=== PATIENT | female | born 1995 | race Hispanic/Latino ===

== ENCOUNTER 2020-08-27 16:37 | Emergency (ER) | payer BC, OTHER ==
[~2020-08-27 16:37] MED LIST: LEVO150 PO
[2020-08-27 17:27] LABS: BASOPHILS % (AUTO) 0.1 % (0.0-5.0); EOSINOPHILS % (AUTO) 0.2 % (0.0-8.0); HEMATOCRIT 29.9 % (36-48); LYMPHOCYTES % (AUTO) 20.9 % (21.0-51.0); MEAN CORPUSCULAR HEMOGLOBIN 18.1 pg (27.0-33.0); MEAN CORPUSCULAR HGB CONC 27.8 g/dL (32.0-36.0); MEAN CORPUSCULAR VOLUME 65.1 fL (79-99); MONOCYTES % (AUTO) 8.5 % (3.0-13.0); PLATELET COUNT (AUTO) 217 K/uL (130-400); RED BLOOD CELL COUNT(AUTO) 4.59 MIL/uL (4.00-5.50); RED CELL DISTRIBUTION WIDTH 20.1 % (11.0-15.5); WHITE BLOOD COUNT (AUTO) 9.3 K/uL (4.8-10.8)
[2020-08-27 17:38] LABS: CREATININE 0.8 mg/dL (0.5-1.5); POTASSIUM 3.4 mmol/L (3.5-5.1)
[2020-08-27 17:43] LABS: BILIRUBIN,TOTAL 1.1 mg/dL (0.2-1.0); TOTAL PROTEIN, SERUM 8.3 g/dL (6.0-8.3)
== END 2020-08-27 20:36 | disposition left against medical advice (07) ==
LOC: EDH 16:37
DX: O20.0 Threatened abortion (principal); E07.9 Disorder of thyroid, unspecified; Z3A.01 Less than 8 weeks gestation of pregnancy
CPT/HCPCS: 36415; 76817; 80053; 85025

== ENCOUNTER 2020-12-25 10:08 | Observation (INO) | payer BC ==
[~2020-12-25] VITALS: Ht 170.2 cm; Wt 67.6 kg
[2020-12-25 10:09] VITALS: BP 113/59
[2020-12-25 11:16] LABS: APPEARANCE,URINE Cloudy (CLEAR); BILIRUBIN,URINE Negative (NEGATIVE); COLOR,URINE Yellow (YELLOW); GLUCOSE, URINE (UA) Negative (NEGATIVE); KETONES,URINE Negative (NEGATIVE); LEUKOCYTE ESTERASE ,URINE Trace (NEGATIVE); NITRATE,URINE Negative (NEGATIVE); OCCULT BLOOD,URINE Negative (NEGATIVE); PROTEIN,URINE Negative (NEGATIVE)
[2020-12-25 11:26] LABS: BACTERIA,URINE Rare /HPF (None Seen); RBC,URINE 0-1 /HPF (0-1); SQUAMOUS EPITHELIAL CELL,UR Few /HPF (0-2); WBC,URINE 0-1 /HPF (0-1)
[2020-12-25] MEDS ORDERED: LACTATED RINGERS 1000ML IV SCH (11:30)
== END 2020-12-25 12:50 | disposition home or self-care (01) ==
LOC: EDH 10:08 → LDH 10:09
PROVIDERS: ADMIT Specialist; ATTEND Specialist
DX: O26.893 Other specified pregnancy related conditions, third trimester (principal); R10.30 Lower abdominal pain, unspecified; R10.2 Pelvic and perineal pain; Z3A.22 22 weeks gestation of pregnancy
CPT/HCPCS: 59025; 81001; G0378 ×3; G0379 ×2

== ENCOUNTER 2021-04-11 22:46 | Observation (INO) | payer BC ==
[~2021-04-11] VITALS: Ht 172.7 cm; Wt 72.6 kg
[2021-04-11 23:00] VITALS: BP 120/76
[2021-04-11 23:24] LABS: APPEARANCE,URINE Cloudy (CLEAR); BILIRUBIN,URINE Negative (NEGATIVE); COLOR,URINE Yellow (YELLOW); GLUCOSE, URINE (UA) Negative (NEGATIVE); KETONES,URINE Trace mg/dL (NEGATIVE); LEUKOCYTE ESTERASE ,URINE Negative (NEGATIVE); NITRATE,URINE Negative (NEGATIVE); OCCULT BLOOD,URINE Negative (NEGATIVE); PROTEIN,URINE POS 1+ mg/dL (NEGATIVE)
[2021-04-11 23:34] LABS: BACTERIA,URINE None Seen /HPF (None Seen); MUCUS,URINE Few LPF (None Seen); RBC,URINE None Seen /HPF (0-1); SQUAMOUS EPITHELIAL CELL,UR Many /HPF (0-2); WBC,URINE None Seen /HPF (0-1)
[2021-04-12] MEDS ORDERED: LACTATED RINGERS 1000ML IV ONE (00:15)
[2021-04-12] MEDS ORDERED: LACTATED RINGERS 1000ML 1,000 ML IV ONE (02:22)
[2021-04-12] MEDS ORDERED: PREN1TAB80 PO (02:29)
[2021-04-12] MEDS ORDERED: LEVO150 PO ×2 (02:29)
== END 2021-04-12 01:50 | disposition home or self-care (01) ==
LOC: EDH 22:46 → LDH 23:02
PROVIDERS: ADMIT Specialist; ATTEND Specialist
DX: O36.8130 Decreased fetal movements, third trimester, not applicable or unspecified (principal); O42.92 Full-term premature rupture of membranes, unspecified as to length of time between rupture and onset of labor; O62.9 Abnormality of forces of labor, unspecified; O26.893 Other specified pregnancy related conditions, third trimester; R10.30 Lower abdominal pain, unspecified; Z3A.37 37 weeks gestation of pregnancy; Z79.899 Other long term (current) drug therapy; Z98.890 Other specified postprocedural states
CPT/HCPCS: 59025 ×2; 76815; 81001; 96360; G0378 ×3; G0379; J7120

== ENCOUNTER 2021-04-16 17:33 | Observation (INO) | payer BC ==
[~2021-04-16] VITALS: Ht 157.5 cm; Wt 73.5 kg
[~2021-04-16 17:33] MED LIST changes: +PREN1TAB80 PO
[2021-04-16 17:37] VITALS: BP 112/71
[2021-04-16 18:29] LABS: APPEARANCE,URINE Clear (CLEAR); BILIRUBIN,URINE Negative (NEGATIVE); COLOR,URINE Yellow (YELLOW); GLUCOSE, URINE (UA) Negative (NEGATIVE); KETONES,URINE Negative (NEGATIVE); LEUKOCYTE ESTERASE ,URINE Small (NEGATIVE); NITRATE,URINE Negative (NEGATIVE); OCCULT BLOOD,URINE Negative (NEGATIVE); PH,URINE 6.5 (5.0-8.0); PROTEIN,URINE Negative (NEGATIVE)
[2021-04-16 18:34] LABS: RBC,URINE 0-1 /HPF (0-1)
[2021-04-16 18:35] LABS: BACTERIA,URINE Few /HPF (None Seen); SQUAMOUS EPITHELIAL CELL,UR Moderate /HPF (0-2)
== END 2021-04-16 20:29 | disposition home or self-care (01) ==
LOC: EDH 17:33 → LDH 17:38
PROVIDERS: ADMIT Specialist; ATTEND Specialist
DX: O36.8130 Decreased fetal movements, third trimester, not applicable or unspecified (principal); Z3A.38 38 weeks gestation of pregnancy; Z79.899 Other long term (current) drug therapy
CPT/HCPCS: 59025; 76819; 81001; G0378 ×2; G0379

== ENCOUNTER 2021-04-20 19:53 | Observation (INO) | payer BC ==
[~2021-04-20] VITALS: Ht 172 cm; Wt 73.5 kg
[2021-04-20 19:55] VITALS: BP 123/75
[2021-04-20] MEDS ORDERED: LACTATED RINGERS 1000ML IV PRN (20:30)
[2021-04-20 20:31] LABS: APPEARANCE,URINE Cloudy (CLEAR); BILIRUBIN,URINE Negative (NEGATIVE); COLOR,URINE Yellow (YELLOW); GLUCOSE, URINE (UA) Negative (NEGATIVE); KETONES,URINE Negative (NEGATIVE); LEUKOCYTE ESTERASE ,URINE Small (NEGATIVE); NITRATE,URINE Negative (NEGATIVE); OCCULT BLOOD,URINE Small (NEGATIVE); PH,URINE 6.5 (5.0-8.0); PROTEIN,URINE Trace mg/dL (NEGATIVE)
[2021-04-20 20:55] LABS: BACTERIA,URINE Few /HPF (None Seen); RBC,URINE None Seen /HPF (0-1)
== END 2021-04-20 21:15 | disposition home or self-care (01) ==
LOC: EDH 19:53 → LDH 20:05
PROVIDERS: ADMIT Specialist; ATTEND Specialist
DX: O62.9 Abnormality of forces of labor, unspecified (principal); O34.63 Maternal care for abnormality of vagina, third trimester; N89.8 Other specified noninflammatory disorders of vagina; O26.893 Other specified pregnancy related conditions, third trimester; R60.0 Localized edema; Z3A.38 38 weeks gestation of pregnancy
CPT/HCPCS: 81001; G0378; G0379

== ENCOUNTER 2022-12-24 18:14 | Observation (INO) | payer BC ==
[~2022-12-24] VITALS: Ht 170.2 cm; Wt 70.3 kg
[2022-12-24 18:40] VITALS: BP 113/70; PULSE 91; RESP 20
== END 2022-12-24 21:38 | disposition home or self-care (01) ==
LOC: EDH 18:14 → LDH 18:15 → EDH 18:48
PROVIDERS: ADMIT Obstetrics & Gynecology; ATTEND Obstetrics & Gynecology
DX: O46.92 Antepartum hemorrhage, unspecified, second trimester (principal); O62.9 Abnormality of forces of labor, unspecified; Z3A.25 25 weeks gestation of pregnancy
CPT/HCPCS: 59025; G0378 ×3